=== PATIENT | female | born 1950 | race Caucasian/White ===

== ENCOUNTER → 2017-08-28 | Day surgery (SDC) | payer OTHER ==
[~2017-08-28] MED LIST: ALENDRONATE SOD70 MG PO; AMLODIPINE BES2.5 MG PO; ATORVASTATIN CA10 MG PO; CALTRATE 600 +1 EACH PO; COZAAR100 MG PO
== END | disposition home or self-care (01) ==
LOC: ADM 08-26 11:45 → CIR.AMB 09:15
DX: K64.8 Other hemorrhoids (principal); K62.0 Anal polyp